=== PATIENT | female | born 1935 | race Hispanic/Latino ===

== ENCOUNTER 2017-10-24 09:53 | Inpatient (IN) | payer MEDICARE ==
[2017-10-24 10:10] VITALS: RESP 20
--- NOTE | 2017-10-24 10:56 | C.PDOC ---
History Of Present Illness 82 year old female, whose PMHx includes HTN, presents to the ED for evaluation of left-sided facial and body numbness which began at around 0300 today. Patient states she woke up to use the bathroom and she felt dizziness which she describes as a room-spinning sensation. Patient also reports feeling nauseous when she ate food this morning. Patient notes she is normally able to walk without support but was unable to this morning due to the dizziness. She currently denies dizziness as well as headache, vision change, chest pain, shortness of breath, vomiting, or pain at this time. Time Seen by Provider: 10/24/17 10:35 Chief Complaint (Nursing): Headache History Per: Patient History/Exam Limitations: no limitations Onset/Duration Of Symptoms: Hrs Current Symptoms Are (Timing): Still Present Quality: denies: "Pain" Preceeding Symptoms: denies: Visual Disturbances Associated Symptoms: Nausea. denies: Photophobia, Blurred Vision, Vomiting Additional History Per: Patient Past Medical History Reviewed: Historical Data, Nursing Documentation, Vital Signs Vital Signs: Last Vital Signs Temp 98.3 F 10/24/17 13:15 Pulse 76 10/24/17 13:15 Resp 20 10/24/17 13:15 BP 166/66 H 10/24/17 13:15 Pulse Ox 95 10/24/17 13:46 - Medical History PMH: HTN Surgical History: No Surg Hx Family History: States: Unknown Family Hx - Social History Hx Tobacco Use: No Hx Alcohol Use: No Hx Substance Use: No - Immunization History Hx Tetanus Toxoid Vaccination: No Hx Influenza Vaccination: No Hx Pneumococcal Vaccination: No Review Of Systems Eyes: Negative for: Vision Change Cardiovascular: Negative for: Chest Pain Respiratory: Negative for: Shortness of Breath Gastrointestinal: Positive for: Nausea. Negative for: Vomiting Neurological: Positive for: Numbness (left-sided), Dizziness. Negative for: Headache Physical Exam - Physical Exam Appears: Non-toxic, No Acute Distress Skin: Warm, Dry, No Diaphoretic, No Pale, No Rash Head: Atraumatic, Normacephalic Eye(s): bilateral: Normal Inspection, PERRL, EOMI, Other (wear glasses) Nose: Normal, No Flaring Oral Mucosa: Moist Neck: Supple Chest: Symmetrical, No Deformity, No Tenderness Cardiovascular: Rhythm Regular, No Murmur Respiratory: Normal Breath Sounds, No Rales, No Rhonchi, No Wheezing Gastrointestinal/Abdominal: Soft, No Tenderness, No Distention, No Guarding, No Rebound Extremity: Normal ROM, Capillary Refill (less than 2 seconds) Pulses: Left Dorsalis Pedis: Normal, Right Dorsalis Pedis: Normal Neurological/Psych: Oriented x3, Normal Speech Gait: Steady ED Course And Treatment - Laboratory Results Result Diagrams: 10/24/17 11:09 10/24/17 11:09 Lab Interpretation: No Acute Changes ECG: Interpreted By Me, Viewed By Me ECG Rhythm: Sinus Rhythm ECG Interpretation: No Acute Changes Rate From EC O2 Sat by Pulse Oximetry: 95 (on RA) Pulse Ox Interpretation: Normal - Other Rad CXR X-Ray: Interpreted by Me, Viewed By Me, Read By Radiologist Interpretation: PROCEDURE: CHEST RADIOGRAPH, 1 VIEW. HISTORY: dizzniess. COMPARISON: None available. FINDINGS: LUNGS: Bibasilar atelectasis/ scarring. PLEURA: Questionable small left pleural effusion. No appreciable pneumothorax. CARDIOVASCULAR: Atherosclerotic aortic calcifications. Cardiomediastinal silhouette enlarged. OSSEOUS STRUCTURES: Degenerative changes. VISUALIZED UPPER ABDOMEN: Normal. OTHER FINDINGS: None. IMPRESSION : Questionable small left pleural effusion. - CT Scan/US CT Head Other Rad Studies (CT/US): Interpreted By Me, Read By Radiologist, Radiology Report Reviewed CT/US Interpretation: PROCEDURE: CT HEAD WITHOUT CONTRAST. HISTORY: dizziness , left side numbness. COMPARISON: None available. TECHNIQUE: Axial computed tomography images were obtained through the head/brain without intravenous contrast. Radiation dose: Total exam DLP = 776.62 mGy-cm. This CT exam was performed using one or more of the following dose reduction techniques: Automated exposure control, adjustment of the mA and/or kV according to patient size, and/or use of iterative reconstruction technique. FINDINGS: HEMORRHAGE: No intracranial hemorrhage. BRAIN: No There is an extra-axial calcified rounded mass along the high right frontal convexity. It measures 1.9 cm in diameter. There is minimal remodeling and sclerosis of the inner table of the calvarium adjacent to this mass. This is consistent with a calcified meningioma. No other intracranial mass is identified. There is a questionable basilar tip aneurysm. This measures approximately 5 x 7 mm. However, this may represent an ectatic dominant/dilated left vertebral artery with an accompanying atrophic right vertebral artery. This should be further evaluated with magnetic resonance angiography. VENTRICLES: Unremarkable. No hydrocephalus. CALVARIUM: No fracture. PARANASAL SINUSES: Unremarkable as visualized. No significant inflammatory changes. MASTOID AIR CELLS: Unremarkable as visualized. No inflammatory changes. OTHER FINDINGS: None. IMPRESSION: Probable high right frontal convexity calcified meningioma. Questionable basilar tip aneurysm versus tortuous, ectatic dominant left vertebral artery. Recommend further evaluation with magnetic resonance angiography. NIHSS Stroke Scale - Date/Time Evaluation Performed Date Performed: 10/24/17 Time Performed: 10:45 When Was NIHSS Performed: Baseline - How Severe is the Stoke Level of Consciousness: 0=Alert LOC to Questions: 0=Both comments correct LOC to commands: 0=Obeys both correctly Best Gaze: 0=Normal Visual: 0=No visual loss Facial: 0=Normal Motor Arm - Left: 0=No drift Motor Arm - Right: 0=No drift Motor Leg - Left: 0=No drift Motor Leg - Right: 0=No drift Limb Ataxia: 0=Absent Sensory: 0=Normal Best Language: 0=No aphasia Dysarthia: 0=Normal articulation Extinction & Inattention (Neglect): 0=Normal, no object Score: 0 Severity Of Stroke: 0= No Stroke Medical Decision Making Medical Decision Making: Impression: 82 year old female with left-sided numbness Plan: * bloodwork * urinalysis * CT Head * EKG Progress: Bloodwork, urinalysis. CT Head, CXR, EKG ordered and reviewed. Dr Gooden was informed and made aware of case and Stroke Alert. CT head showed Probable high right frontal convexity calcified meningioma. Questionable basilar tip aneurysm versus tortuous, ectatic dominant left vertebral artery. Recommend further evaluation with magnetic resonance angiography. Patient remained alert and oriented without neuro deficits. 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 - Scribe Statement The provider has reviewed the documentation as recorded by the Scribe (Isaura Dickerson) All medical record entries made by the Scribe were at my direction and personally dictated by me. I have reviewed the chart and agree that the record accurately reflects my personal performance of the history, physical exam, medical decision making, and the department course for this patient. I have also personally directed, reviewed, and agree with the discharge instructions and disposition. Decision To Admit - Pt Status Changed To: Hospital Disposition Of: Observation - . Bed Request Type: Telemetry Admitting Physician: Juan Daniel Huynh Patient Diagnosis: TIA (transient ischemic attack)
[2017-10-24 11:16] LABS: BASO % 0.6 % (0.0-2.0); EOS # 0.1 K/uL (0.0-0.7); EOS % 0.8 % (0.0-4.0); HEMOGLOBIN 12.9 g/dL (11.0-16.0); LYMPH % 15.4 % (20.0-40.0); MEAN CELL VOLUME 91.2 fL (81.0-99.0); MEAN CORPUSCULAR HEMOGLOBIN 30.9 pg (27.0-31.0); MEAN CORPUSCULAR HGB CONC 33.9 g/dL (33.0-37.0); MEAN PLATELET VOLUME 8.3 fL (7.2-11.7); MONO # 0.6 K/uL (0.0-0.8); MONO % 9.9 % (0.0-10.0); NEUT # 4.8 K/uL (1.8-7.0); NEUT % 73.3 % (50.0-75.0); RBC 4.17 Mil/uL (3.80-5.20); WHITE BLOOD COUNT 6.5 K/uL (4.8-10.8)
[2017-10-24 11:27] LABS: ALB/GLOB RATIO 1.3 (1.0-2.1); ALBUMIN 4.3 g/dL (3.5-5.0); ALT/SGPT 10 U/L (9-52); AST/SGOT 28 U/L (14-36); BLOOD UREA NITROGEN 18 mg/dL (7-17); CALCIUM 9.2 mg/dl (8.6-10.4); GFR AFRICAN-AMERICAN > 60; GFR NON-AFRICAN AMERICAN > 60; HDL CHOLESTEROL 47 mg/dL (30-70)
[2017-10-24 11:30] LABS: URINE BILIRUBIN NEGATIVE (NEGATIVE); URINE BLOOD NEGATIVE (NEGATIVE); URINE CLARITY Clear (Clear); URINE COLOR Straw (YELLOW); URINE GLUCOSE (UA) NORMAL (Normal); URINE LEUKOCYTE ESTERASE NEG Leu/uL (Negative); URINE PROTEIN NEGATIVE (NEGATIVE); URINE UROBILINOGEN NORMAL mg/dL (0.2-1.0)
[2017-10-24 11:36] LABS: INR 1.1; PROTHROMBIN TIME 11.6 SECONDS (9.7-12.2)
[2017-10-24 11:38] LABS: LDL CHOLESTEROL 103 mg/dL (0-129)
--- NOTE | 2017-10-24 12:30 | CT ---
PROCEDURE: CT HEAD WITHOUT CONTRAST. HISTORY: dizziness, left side numbness COMPARISON: None available. TECHNIQUE: Axial computed tomography images were obtained through the head/brain without intravenous contrast. Radiation dose: Total exam DLP = 776.62 mGy-cm. This CT exam was performed using one or more of the following dose reduction techniques: Automated exposure control, adjustment of the mA and/or kV according to patient size, and/or use of iterative reconstruction technique. FINDINGS: HEMORRHAGE: No intracranial hemorrhage. BRAIN: No There is an extra-axial calcified rounded mass along the high right frontal convexity. It measures 1.9 cm in diameter. There is minimal remodeling and sclerosis of the inner table of the calvarium adjacent to this mass. This is consistent with a calcified meningioma. No other intracranial mass is identified. There is a questionable basilar tip aneurysm. This measures approximately 5 x 7 mm. However, this may represent an ectatic dominant/dilated left vertebral artery with an accompanying atrophic right vertebral artery. This should be further evaluated with magnetic resonance angiography. VENTRICLES: Unremarkable. No hydrocephalus. CALVARIUM: No fracture. PARANASAL SINUSES: Unremarkable as visualized. No significant inflammatory changes. MASTOID AIR CELLS: Unremarkable as visualized. No inflammatory changes. OTHER FINDINGS: None. IMPRESSION: Probable high right frontal convexity calcified meningioma. Questionable basilar tip aneurysm versus tortuous, ectatic dominant left vertebral artery. Recommend further evaluation with magnetic resonance angiography.
--- NOTE | 2017-10-24 12:39 | RAD ---
PROCEDURE: CHEST RADIOGRAPH, 1 VIEW HISTORY: dizzniess COMPARISON: None available. FINDINGS: LUNGS: Bibasilar atelectasis/ scarring. PLEURA: Questionable small left pleural effusion. No appreciable pneumothorax. CARDIOVASCULAR: Atherosclerotic aortic calcifications. Cardiomediastinal silhouette enlarged. OSSEOUS STRUCTURES: Degenerative changes. VISUALIZED UPPER ABDOMEN: Normal. OTHER FINDINGS: None. IMPRESSION: Questionable small left pleural effusion.
--- NOTE | 2017-10-24 14:18 | CP.PCM.HP ---
<Gamaliel Martinez - Last Filed: 10/24/17 16:08> History of Present Illness - History of Present Illness History of Present Illness: CC: left side numbness 82 year old [place] female with past medical history of hypertension and heart murmur presents to the ED complaining of left sided numbness. Patient states her symptoms started suddenly this morning around 3AM. When she woke up in the later that morning still having numbness. Patient became worried and her friend recommended the patient to go to the hospital. Patient also reports to feeling nauseous and dizziness as if the room is spinning. Patient denies having slurred of speech or weakness. When she arrived the ED her symptoms improved slightly. No similar episodes in the past. Patient was last seen by Dr. Brasher ( cardiology) 3 years ago to evaluate her heart murmur, was told no surgical intervention was necessary. Patient denies physical trauma, fever, chills, shortness of breath, chest pain, abdominal pain, extremity swelling, vomiting, or urinary symptoms. Daughter [phone] PMD: Dr. Snyder PMHx: HTN, heart murmur PSHx: Hernia repair 2007 Allergy: none Social Hx: Denies tobacco, alcohol or other drug use. Lives with her . Family Hx: Both parents at young age during WW2 Home meds: Amlodipine 5mg Present on Admission - Present on Admission Any Indicators Present on Admission: No Review of Systems - Review of Systems All systems: reviewed and no additional remarkable complaints except - Constitutional Constitutional: As Per HPI. absent: Chills, Fever - EENT Eyes: As Per HPI. absent: Blurred Vision, Diplopia, Dry Eye Ears: As Per HPI, Dizziness Nose/Mouth/Throat: As Per HPI. absent: Epistaxis, Nasal Discharge - Breasts Breasts: As Per HPI - Cardiovascular Cardiovascular: As Per HPI. absent: Chest Pain, Dyspnea, Leg Edema - Respiratory Respiratory: As Per HPI. absent: Cough, Dyspnea - Gastrointestinal Gastrointestinal: As Per HPI, Nausea. absent: Abdominal Pain, Diarrhea, Vomiting - Genitourinary Genitourinary: As Per HPI. absent: Change in Urinary Stream, Flank Pain - Reproductive: Female Reproductive:Female: As Per HPI - Menstruation Menstruation: As Per HPI - Musculoskeletal Musculoskeletal: As Per HPI, Numbness, Tingling - Integumentary Integumentary: As Per HPI. absent: Acne, Alopecia - Neurological Neurological: As Per HPI, Dizziness, Tingling. absent: Frequent Falls - Psychiatric Psychiatric: As Per HPI. absent: Confusion, Depression - Endocrine Endocrine: As Per HPI - Hematologic/Lymphatic Hematologic: As Per HPI Past Patient History - Past Social History Smoking Status: Never Smoked - CARDIAC Hx Hypertension: Yes - PSYCHIATRIC Hx Substance Use: No - SURGICAL HISTORY Hx Surgeries: No - ANESTHESIA Hx Anesthesia: No Hx Anesthesia Reactions: No Meds Allergies/Adverse Reactions: Allergies Allergy/AdvReac Type Severity Reaction Status Date / Time No Known Allergies Allergy Verified 10/24/17 10:11 Physical Exam - Constitutional Appears: Non-toxic, No Acute Distress - Head Exam Head Exam: ATRAUMATIC, NORMOCEPHALIC - Eye Exam Eye Exam: EOMI, Normal appearance - ENT Exam ENT Exam: Mucous Membranes Moist - Neck Exam Neck exam: Positive for: Normal Inspection - Respiratory Exam Respiratory Exam: Clear to Auscultation Bilateral, NORMAL BREATHING PATTERN. absent: Wheezes, Respiratory Distress - Cardiovascular Exam Cardiovascular Exam: +S1, +S2, Systolic Murmur. absent: Clicks - GI/Abdominal Exam GI & Abdominal Exam: Normal Bowel Sounds, Soft. absent: Bruit, Mass, Tenderness - Extremities Exam Extremities exam: Positive for: normal inspection. Negative for: joint swelling , pedal edema, tenderness - Neurological Exam Neurological exam: Alert, CN II-XII Intact, Oriented x3 Additional comments: sensory R>L, strength 5/5 in all extremities No tremors, no ataxia, no pronator drift appreciated - Psychiatric Exam Psychiatric exam: Normal Affect, Normal Mood - Skin Skin Exam: Dry, Intact, Normal Color, Warm Results - Vital Signs Recent Vital Signs: Last Vital Signs Temp 98.3 F 10/24/17 13:15 Pulse 76 10/24/17 13:15 Resp 20 10/24/17 13:15 BP 166/66 H 10/24/17 13:15 Pulse Ox 95 10/24/17 13:46 - Labs Result Diagrams: 10/24/17 11:09 10/24/17 11:09 Labs: Laboratory Results - last 24 hr 10/24/17 10/24/17 10/24/17 11:09 11:09 11:09 WBC 6.5 RBC 4.17 Hgb 12.9 Hct 38.1 MCV 91.2 MCH 30.9 MCHC 33.9 RDW 14.0 Plt Count 258 MPV 8.3 Neut % (Auto) 73.3 Lymph % (Auto) 15.4 L [place] % (Auto) 9.9 Eos % (Auto) 0.8 Baso % (Auto) 0.6 Neut # (Auto) 4.8 Lymph # (Auto) 1.0 [place] # (Auto) 0.6 Eos # (Auto) 0.1 Baso # (Auto) 0.0 PT 11.6 INR 1.1 APTT 32 Sodium 144 Potassium 4.5 Chloride 102 Carbon Dioxide 29 Anion Gap 17 BUN 18 H Creatinine 0.7 Est GFR ( Amer) > 60 Est GFR (Non-Af Amer) > 60 Random Glucose 111 H Calcium 9.2 Total Bilirubin 0.6 AST 28 ALT 10 Alkaline Phosphatase 65 Troponin I < 0.0120 Total Protein 7.6 Albumin 4.3 Globulin 3.3 Albumin/Globulin Ratio 1.3 Triglycerides 51 Cholesterol 163 LDL Cholesterol Direct 103 HDL Cholesterol 47 Urine Color Urine Clarity Urine pH Ur Specific [place] Urine Protein Urine Glucose (UA) Urine Ketones Urine Blood Urine Nitrate Urine Bilirubin Urine Urobilinogen Ur Leukocyte Esterase Urine WBC (Auto) Urine RBC (Auto) 10/24/17 11:15 WBC RBC Hgb Hct MCV MCH MCHC RDW Plt Count MPV Neut % (Auto) Lymph % (Auto) [place] % (Auto) Eos % (Auto) Baso % (Auto) Neut # (Auto) Lymph # (Auto) [place] # (Auto) Eos # (Auto) Baso # (Auto) PT INR APTT Sodium Potassium Chloride Carbon Dioxide Anion Gap BUN Creatinine Est GFR ( Amer) Est GFR (Non-Af Amer) Random Glucose Calcium Total Bilirubin AST ALT Alkaline Phosphatase Troponin I Total Protein Albumin Globulin Albumin/Globulin Ratio Triglycerides Cholesterol LDL Cholesterol Direct HDL Cholesterol Urine Color Straw Urine Clarity Clear Urine pH 7.0 Ur Specific [place] 1.008 Urine Protein Negative Urine Glucose (UA) Normal Urine Ketones Negative Urine Blood Negative Urine Nitrate Negative Urine Bilirubin Negative Urine Urobilinogen Normal Ur Leukocyte Esterase Neg Urine WBC (Auto) 1 Urine RBC (Auto) 1 Assessment & Plan - Assessment and Plan (Free Text) Assessment: TIA -Improving left sided numbness -CT head shows probable right frontal calcified meningioma, questionable basilar tip aneurysm (see report) -Follow up head, neck MRA, brain MRI w/ contrast -Neurology consulted -Troponin negative, repeats pending -Follow up B12, folate, TSH -ASA 325mg, crestor 20mg -Neuro check Systolic murmur -Patient was last evaluated 3 years ago, no intervention performed -Follow up echocardiogram -Cardiology consulted HTN -Hold off home hypertensive medication to optimize cerebral perfusion Prophylactic measures -Protonix -SCD -PT and OT <Juan Daniel Huynh - Last Filed: 10/24/17 18:18> Results - Vital Signs Recent Vital Signs: Last Vital Signs Temp 97.2 F L 10/24/17 16:25 Pulse 90 10/24/17 16:25 Resp 20 10/24/17 16:25 BP 187/52 H 10/24/17 16:25 Pulse Ox 98 10/24/17 17:03 - Labs Result Diagrams: 10/24/17 11:09 10/24/17 11:09 Labs: Laboratory Results - last 24 hr 10/24/17 10/24/17 10/24/17 11:09 11:09 11:09 WBC 6.5 RBC 4.17 Hgb 12.9 Hct 38.1 MCV 91.2 MCH 30.9 MCHC 33.9 RDW 14.0 Plt Count 258 MPV 8.3 Neut % (Auto) 73.3 Lymph % (Auto) 15.4 L [place] % (Auto) 9.9 Eos % (Auto) 0.8 Baso % (Auto) 0.6 Neut # (Auto) 4.8 Lymph # (Auto) 1.0 [place] # (Auto) 0.6 Eos # (Auto) 0.1 Baso # (Auto) 0.0 PT 11.6 INR 1.1 APTT 32 Sodium 144 Potassium 4.5 Chloride 102 Carbon Dioxide 29 Anion Gap 17 BUN 18 H Creatinine 0.7 Est GFR ( Amer) > 60 Est GFR (Non-Af Amer) > 60 Random Glucose 111 H Calcium 9.2 Total Bilirubin 0.6 AST 28 ALT 10 Alkaline Phosphatase 65 Troponin I < 0.0120 Total Protein 7.6 Albumin 4.3 Globulin 3.3 Albumin/Globulin Ratio 1.3 Triglycerides 51 Cholesterol 163 LDL Cholesterol Direct 103 HDL Cholesterol 47 Urine Color Urine Clarity Urine pH Ur Specific [place] Urine Protein Urine Glucose (UA) Urine Ketones Urine Blood Urine Nitrate Urine Bilirubin Urine Urobilinogen Ur Leukocyte Esterase Urine WBC (Auto) Urine RBC (Auto) 10/24/17 11:15 WBC RBC Hgb Hct MCV MCH MCHC RDW Plt Count MPV Neut % (Auto) Lymph % (Auto) [place] % (Auto) Eos % (Auto) Baso % (Auto) Neut # (Auto) Lymph # (Auto) [place] # (Auto) Eos # (Auto) Baso # (Auto) PT INR APTT Sodium Potassium Chloride Carbon Dioxide Anion Gap BUN Creatinine Est GFR ( Amer) Est GFR (Non-Af Amer) Random Glucose Calcium Total Bilirubin AST ALT Alkaline Phosphatase Troponin I Total Protein Albumin Globulin Albumin/Globulin Ratio Triglycerides Cholesterol LDL Cholesterol Direct HDL Cholesterol Urine Color Straw Urine Clarity Clear Urine pH 7.0 Ur Specific [place] 1.008 Urine Protein Negative Urine Glucose (UA) Normal Urine Ketones Negative Urine Blood Negative Urine Nitrate Negative Urine Bilirubin Negative Urine Urobilinogen Normal Ur Leukocyte Esterase Neg Urine WBC (Auto) 1 Urine RBC (Auto) 1 Attending/Attestation - Attestation I have personally seen and examined this patient.: Yes I have fully participated in the care of the patient.: Yes I have reviewed all pertinent clinical information: Yes Notes (Text): Patient was seen and examined by me in the ER. Complaining of left side numbness. started this morning 3am. It is getting better. Has some left hand and left foot numbness . No change in her speech,no dysphagia. History taken from the patient. d/w the resident. I agree with the documentation of the resident's assessment and the plan MRA head and neck and MRI brain with and without contrast. Dr varghese's consult appreciated follow MRI and MRA
--- NOTE | 2017-10-24 17:27 | CP.PCM.CON ---
History of Present Illness - History of Present Illness History of Present Illness: Mrs. Hoang is an 82-year-old woman with a past medical history of hypertension, who states that she woke up this morning at around 3 AM with vertigo, difficulty with ambulation and left side numbness. She presented to the ED this afternoon. CT scan of the head showed dilated vertebrobasilar system, but no acute findings. She continues to have left side numbness and feels like the room is spinning. She does not feel steady when she walks. She denied nausea, vomiting, headache, chest pain, or other neurological deficits. Review of Systems - Review of Systems All systems: reviewed and no additional remarkable complaints except Past Patient History - Past Social History Smoking Status: Never Smoked - CARDIAC Hx Hypertension: Yes - PSYCHIATRIC Hx Substance Use: No - SURGICAL HISTORY Hx Surgeries: No - ANESTHESIA Hx Anesthesia: No Hx Anesthesia Reactions: No Meds Allergies/Adverse Reactions: Allergies Allergy/AdvReac Type Severity Reaction Status Date / Time No Known Allergies Allergy Verified 10/24/17 10:11 - Medications Medications: Current Medications Aspirin (Aspirin) 325 mg PO DAILY [facility] Last Admin: 10/24/17 14:36 Dose: 325 mg Pantoprazole Sodium (Protonix Ec Tab) 40 mg PO DAILY [facility] Pneumococcal Polyvalent Vaccine (Pneumovax 23 Vaccine) 0.5 ml IM .ONCE ONE Stop: 10/26/17 10:01 Rosuvastatin Calcium (Crestor) 20 mg PO [facility] Physical Exam - Neurological Exam Neurological exam: Abnormal Gait, Alert, CN II-XII Intact, Oriented x3 Additional comments: Reflexes brisk on the left side. Sensation is diminished on the left face, arm and leg. Coordination is impaired on the left side. No nystagmus. NIHSS=2 Results - Vital Signs Recent Vital Signs: Last Vital Signs Temp 97.2 F L 10/24/17 16:25 Pulse 90 10/24/17 16:25 Resp 20 10/24/17 16:25 BP 187/52 H 10/24/17 16:25 Pulse Ox 98 10/24/17 17:03 - Labs Result Diagrams: 10/24/17 11:09 10/24/17 11:09 Labs: Laboratory Results - last 24 hr 10/24/17 10/24/17 10/24/17 11:09 11:09 11:09 WBC 6.5 RBC 4.17 Hgb 12.9 Hct 38.1 MCV 91.2 MCH 30.9 MCHC 33.9 RDW 14.0 Plt Count 258 MPV 8.3 Neut % (Auto) 73.3 Lymph % (Auto) 15.4 L [place] % (Auto) 9.9 Eos % (Auto) 0.8 Baso % (Auto) 0.6 Neut # (Auto) 4.8 Lymph # (Auto) 1.0 [place] # (Auto) 0.6 Eos # (Auto) 0.1 Baso # (Auto) 0.0 PT 11.6 INR 1.1 APTT 32 Sodium 144 Potassium 4.5 Chloride 102 Carbon Dioxide 29 Anion Gap 17 BUN 18 H Creatinine 0.7 Est GFR ( Amer) > 60 Est GFR (Non-Af Amer) > 60 Random Glucose 111 H Calcium 9.2 Total Bilirubin 0.6 AST 28 ALT 10 Alkaline Phosphatase 65 Troponin I < 0.0120 Total Protein 7.6 Albumin 4.3 Globulin 3.3 Albumin/Globulin Ratio 1.3 Triglycerides 51 Cholesterol 163 LDL Cholesterol Direct 103 HDL Cholesterol 47 Urine Color Urine Clarity Urine pH Ur Specific [place] Urine Protein Urine Glucose (UA) Urine Ketones Urine Blood Urine Nitrate Urine Bilirubin Urine Urobilinogen Ur Leukocyte Esterase Urine WBC (Auto) Urine RBC (Auto) 10/24/17 11:15 WBC RBC Hgb Hct MCV MCH MCHC RDW Plt Count MPV Neut % (Auto) Lymph % (Auto) [place] % (Auto) Eos % (Auto) Baso % (Auto) Neut # (Auto) Lymph # (Auto) [place] # (Auto) Eos # (Auto) Baso # (Auto) PT INR APTT Sodium Potassium Chloride Carbon Dioxide Anion Gap BUN Creatinine Est GFR ( Amer) Est GFR (Non-Af Amer) Random Glucose Calcium Total Bilirubin AST ALT Alkaline Phosphatase Troponin I Total Protein Albumin Globulin Albumin/Globulin Ratio Triglycerides Cholesterol LDL Cholesterol Direct HDL Cholesterol Urine Color Straw Urine Clarity Clear Urine pH 7.0 Ur Specific [place] 1.008 Urine Protein Negative Urine Glucose (UA) Normal Urine Ketones Negative Urine Blood Negative Urine Nitrate Negative Urine Bilirubin Negative Urine Urobilinogen Normal Ur Leukocyte Esterase Neg Urine WBC (Auto) 1 Urine RBC (Auto) 1 Assessment & Plan (1) Ischemic stroke Assessment and Plan: The patient continues to have left side numbness and coordination difficulty. Her symptoms may represent vertebrobasilar insufficiency, or a possible left cerebellar infarct. CT of the head showed a possible basilar tip aneurysm and a calcified meningioma in the right frontal region. I recommend the followin. Telemetry 2. MRI brain with and without contrast (possible meningioma), MRA head/neck without contrast (STAT) 3. If no aneurysm, start Aspirin 81 mg daily 4. Permissive HTN (only treat BP that is higher than 220/110 mm Hg) 5. Valium 2 mg BID for vertigo 6. PT/OT eval and treatment 7. Echocardiogram with bubble study 8. Fluids with NS at 100 mL/hr 9. Case management Consult Thank you for this consultation. Status: Acute Priority: High
[2017-10-24] MEDS ORDERED: Gadodiamide 287 mg/ml 20 ml IV ONE (18:16)
--- NOTE | 2017-10-24 18:40 | MRI ---
PROCEDURE: MRI BRAIN WITH AND WITHOUT CONTRAST HISTORY: stroke meningioma COMPARISON: CT of the head 10/24/2017 TECHNIQUE: Multiplanar, multisequence MR images of the brain were obtained with and without intravenous contrast enhancement. FINDINGS: HEMORRHAGE: None DWI: No evidence of an acute or early subacute infarction. BRAIN PARENCHYMA: There is a 17 mm calcified meningioma in the right parietal region. There is no significant mass effect or edema in the adjacent brain. There is minimal enhancement along the periphery of the lesion. No atrophy or chronic microvascular ischemic changes. ENHANCEMENT: No abnormal intracranial enhancement. VENTRICLES: Unremarkable. No hydrocephalus. CRANIUM: Unremarkable. ORBITS: Grossly unremarkable. PARANASAL SINUSES/MASTOIDS: Clear VASCULAR SYSTEM: Skull base flow voids intact. OTHER FINDINGS: None . IMPRESSION: No acute intracranial findings. 17 mm meningioma right parietal region
--- NOTE | 2017-10-24 18:44 | MRI ---
PROCEDURE: MR Angiography of the neck without contrast HISTORY: stroke COMPARISON: None available. TECHNIQUE: 3D [id number] angiography of the neck was performed. Rotating maximum intensity projection images of the cervical carotid and vertebral arteries were generated. The origins of the common carotid arteries were not visualized, which is a limitation inherent to the non-contrast time of flight technique. FINDINGS: RIGHT CAROTID ARTERIES: Common Carotid Artery: Normal. Carotid Bifurcation: Normal. Internal Carotid Artery:Normal. External Carotid Artery (proximal branches): Normal. LEFT CAROTID ARTERIES: Common Carotid Artery: Normal. Carotid Bifurcation: Normal. Internal Carotid Artery:Normal. External Carotid Artery (proximal branches): Normal. VERTEBRAL ARTERIES: Right Vertebral Artery: Dominant Left Vertebral Artery: Normal. OTHER FINDINGS: None. IMPRESSION: No significant stenosis
--- NOTE | 2017-10-24 18:46 | MRI ---
PROCEDURE: Magnetic Resonance Angiography Brain HISTORY: stroke COMPARISON: None available. TECHNIQUE: 3D time of flight MR angiography of the intracranial arteries was performed. Rotating maximum intensity projection images were generated. FINDINGS: INTERNAL CAROTID ARTERIES: Unremarkable. The skull base, petrous, cavernous and supraclinoid segments are bilaterally widely patient. ANTERIOR CEREBRAL ARTERIES: Unremarkable. A1 and A2 segments are widely patent. Smaller distal branches unremarkable, as visualized. MIDDLE CEREBRAL ARTERIES: Unremarkable. M1 and M2 segments are widely patent. Perisylvian branches grossly symmetric. POSTERIOR CIRCULATION: Basilar Artery: Unremarkable. Distal Vertebral Arteries: Unremarkable. Posterior Cerebral Arteries: Unremarkable. Posterior Inferior Cerebellar Arteries: Unremarkable. ANEURYSM/ VASCULAR MALFORMATIONS: None. OTHER FINDINGS: None. IMPRESSION: Unremarkable MR angiography of the brain.
[2017-10-24] MEDS: Sodium Chloride 0.9% 1,000 ML IV SCH (18:52)
[2017-10-24 18:59] LABS: FOLATE > 20.0 ng/mL
[2017-10-25] MEDS: Sodium Chloride 0.9% 1,000 ML IV SCH ×2 (05:30→14:47)
[2017-10-25 06:37] LABS: BASO % 0.7 % (0.0-2.0); EOS # 0.1 K/uL (0.0-0.7); EOS % 2.4 % (0.0-4.0); HEMOGLOBIN 12.9 g/dL (11.0-16.0); LYMPH # 1.3 K/uL (1.0-4.3); LYMPH % 25.3 % (20.0-40.0); MEAN CELL VOLUME 91.9 fL (81.0-99.0); MEAN CORPUSCULAR HEMOGLOBIN 30.7 pg (27.0-31.0); MEAN CORPUSCULAR HGB CONC 33.5 g/dL (33.0-37.0); MEAN PLATELET VOLUME 8.3 fL (7.2-11.7); MONO # 0.6 K/uL (0.0-0.8); MONO % 12.1 % (0.0-10.0); NEUT % 59.5 % (50.0-75.0); RBC 4.2 Mil/uL (3.80-5.20); RED CELL DISTRIBUTION WIDTH 14.3 % (11.5-14.5)
[2017-10-25 06:50] LABS: ALB/GLOB RATIO 1.2 (1.0-2.1); ALBUMIN 3.7 g/dL (3.5-5.0); ALT/SGPT 20 U/L (9-52); AST/SGOT 23 U/L (14-36); BLOOD UREA NITROGEN 15 mg/dL (7-17); CALCIUM 8.9 mg/dl (8.6-10.4); GFR AFRICAN-AMERICAN > 60; GFR NON-AFRICAN AMERICAN > 60
--- NOTE | 2017-10-25 07:34 | CP.PCM.PN ---
Subjective - Date & Time of Evaluation Date of Evaluation: 10/25/17 Time of Evaluation: 07:00 - Subjective Subjective: Medicine Progress Note: Patient was seen and examined at bedside in the AM. Patient states her numbness has improved slightly on the left side but she still has decreased sensation. she denies pain, nausea, vomiting, fever, chills, change in weight, diarrhea or constipation. Objective - Vital Signs/Intake and Output Vital Signs (last 24 hours): Temp Pulse Resp BP Pulse Ox 97.8 F 63 20 131/66 97 10/24/17 23:10 10/25/17 05:36 10/24/17 23:10 10/25/17 05:36 10/25/17 04:00 Intake and Output: 10/25/17 10/25/17 06:59 18:59 Intake Total 900 Balance 900 - Medications Medications: Current Medications Diazepam (Valium) 2 mg PO Q12H [facility] Last Admin: 10/25/17 06:05 Dose: 2 mg Sodium Chloride (Sodium Chloride 0.9%) 1,000 mls @ 100 mls/hr IV .Q10H [facility] Last Admin: 10/25/17 05:30 Dose: Not Given Pantoprazole Sodium (Protonix Ec Tab) 40 mg PO DAILY [facility] Pneumococcal Polyvalent Vaccine (Pneumovax 23 Vaccine) 0.5 ml IM .ONCE ONE Stop: 10/26/17 10:01 Rosuvastatin Calcium (Crestor) 20 mg PO HS [facility] Last Admin: 10/24/17 21:21 Dose: 20 mg - Labs Labs: 10/25/17 06:29 10/25/17 06:29 PT 11.6 SECONDS (9.7-12.2) 10/24/17 11:09 INR 1.1 10/24/17 11:09 APTT 32 SECONDS (21-34) 10/24/17 11:09 - Constitutional Appears: No Acute Distress - Head Exam Head Exam: ATRAUMATIC, NORMAL INSPECTION - Eye Exam Eye Exam: EOMI, Normal appearance - ENT Exam ENT Exam: Mucous Membranes Moist - Respiratory Exam Respiratory Exam: Clear to Ausculation Bilateral, NORMAL BREATHING PATTERN - Cardiovascular Exam Cardiovascular Exam: REGULAR RHYTHM, RRR, +S1, +S2, Murmur (systolic murmur ) - GI/Abdominal Exam GI & Abdominal Exam: Soft, Normal Bowel Sounds. absent: Tenderness - Extremities Exam Extremities Exam: Full ROM, Normal Inspection. absent: Pedal Edema, Tenderness - Neurological Exam Neurological Exam: Alert, Awake, CN II-XII Intact, Oriented x3 Neuro motor strength exam: Left Upper Extremity: 5, Right Upper Extremity: 5, Left Lower Extremity: 5, Right Lower Extremity: 5 Additional comments: Decreased sensation to light touch on the left side - Psychiatric Exam Psychiatric exam: Normal Affect, Normal Mood - Skin Skin Exam: Normal Color Assessment and Plan - Assessment and Plan (Free Text) Assessment: TIA -Improving left sided numbness -CT head shows probable right frontal calcified meningioma, questionable basilar tip aneurysm (see report) -Follow up head, neck MRA, brain MRI w/ contrast -Neurology consulted -Troponin negative, repeats pending -Follow up B12, folate, TSH -ASA 325mg, crestor 20mg -Neuro check Systolic murmur -Patient was last evaluated 3 years ago, no intervention performed -Follow up echocardiogram -Cardiology consulted HTN -Hold off home hypertensive medication to optimize cerebral perfusion Prophylactic measures -Protonix -SCD -PT and OT
--- NOTE | 2017-10-25 07:56 | CP.PCM.PN ---
Subjective - Date & Time of Evaluation Date of Evaluation: 10/25/17 Time of Evaluation: 07:50 - Subjective Subjective: Ms. Hoang was seen and examined at the bedside. She is alert, oriented. She denies any headache, dizziness, lightheadedness, nausea, or vomiting. She further states of feeling much better today in comparison from yesterday. She is able to follow simple commands with her reflexes brisk on the left side. Sensation is diminished on the left face, arm and leg. Coordination is impaired on the left side, remains with no nystagmus. She is able to ambulate from bed to bathroom with minimal assistance which she claims is a lot of improvement from yesterday. MRI of the brain showed 17 mm meningioma in the right parietal region. There was no untoward events overnight. Objective - Vital Signs/Intake and Output Vital Signs (last 24 hours): Temp Pulse Resp BP Pulse Ox 97.6 F 87 20 127/74 96 10/25/17 07:00 10/25/17 07:00 10/25/17 07:00 10/25/17 07:00 10/25/17 07:00 Intake and Output: 10/25/17 10/25/17 06:59 18:59 Intake Total 900 Balance 900 - Medications Medications: Current Medications Aspirin (Aspirin Chewable) 81 mg PO DAILY [facility] Diazepam (Valium) 2 mg PO Q12H [facility] Last Admin: 10/25/17 06:05 Dose: 2 mg Sodium Chloride (Sodium Chloride 0.9%) 1,000 mls @ 100 mls/hr IV .Q10H [facility] Last Admin: 10/25/17 05:30 Dose: Not Given Pantoprazole Sodium (Protonix Ec Tab) 40 mg PO DAILY [facility] Pneumococcal Polyvalent Vaccine (Pneumovax 23 Vaccine) 0.5 ml IM .ONCE ONE Stop: 10/26/17 10:01 Rosuvastatin Calcium (Crestor) 20 mg PO HS [facility] Last Admin: 10/24/17 21:21 Dose: 20 mg - Labs Labs: 10/25/17 06:29 10/25/17 06:29 PT 11.6 SECONDS (9.7-12.2) 10/24/17 11:09 INR 1.1 10/24/17 11:09 APTT 32 SECONDS (21-34) 10/24/17 11:09 - Constitutional Appears: No Acute Distress - Head Exam Head Exam: NORMAL INSPECTION - Neurological Exam Neurological Exam: Alert, Awake, Oriented x3 Neuro motor strength exam: Left Upper Extremity: 4, Right Upper Extremity: 5, Left Lower Extremity: 4, Right Lower Extremity: 5 Additional comments: She is alert, oriented, follows commands with reflexes brisk on the left side. Sensation is diminished on the left face, arm and leg. Coordination is impaired on the left side and no nystagmus. Assessment and Plan (1) Ischemic stroke Assessment & Plan: Case discussed with Dr. Marin, continue all current medical, physical, occupational therapies. Recommend aspirin 81 mg po daily. Pending echocardiogram. Status: Acute
[2017-10-25] MEDS ORDERED: Pantoprazole 40 mg EC Tab PO SCH (10:00)
--- NOTE | 2017-10-25 16:38 | CP.PCM.DIS ---
Provider - Provider Date of Admission: 10/25/17 15:42 Attending physician: Juan Daniel Huynh MD Time Spent in preparation of Discharge (in minutes): 40 Hospital Course - Lab Results Lab Results: Most Recent Lab Values WBC 5.0 K/uL (4.8-10.8) 10/25/17 06:29 RBC 4.20 Mil/uL (3.80-5.20) 10/25/17 06:29 Hgb 12.9 g/dL (11.0-16.0) 10/25/17 06:29 Hct 38.6 % (34.0-47.0) 10/25/17 06: MCV 91.9 fL (81.0-99.0) 10/25/17 06: MCH 30.7 pg (27.0-31.0) 10/25/17 06: MCHC 33.5 g/dL (33.0-37.0) 10/25/17 06: RDW 14.3 % (11.5-14.5) 10/25/17 06:29 Plt Count 266 K/uL (130-400) 10/25/17 06:29 MPV 8.3 fL (7.2-11.7) 10/25/17 06:29 Neut % (Auto) 59.5 % (50.0-75.0) 10/25/17 06: Lymph % (Auto) 25.3 % (20.0-40.0) 10/25/17 06: [place] % (Auto) 12.1 % (0.0-10.0) H 10/25/17 06:29 Eos % (Auto) 2.4 % (0.0-4.0) 10/25/17 06:29 Baso % (Auto) 0.7 % (0.0-2.0) 10/25/17 06: Neut # (Auto) 3.0 K/uL (1.8-7.0) 10/25/17 06:29 Lymph # (Auto) 1.3 K/uL (1.0-4.3) 10/25/17 06:29 [place] # (Auto) 0.6 K/uL (0.0-0.8) 10/25/17 06:29 Eos # (Auto) 0.1 K/uL (0.0-0.7) 10/25/17 06:29 Baso # (Auto) 0.0 K/uL (0.0-0.2) 10/25/17 06:29 PT 11.6 SECONDS (9.7-12.2) 10/24/17 11:09 INR 1.1 10/24/17 11:09 APTT 32 SECONDS (21-34) 10/24/17 11:09 Sodium 145 mmol/L (132-148) 10/25/17 06:29 Potassium 4.2 mmol/L (3.6-5.2) 10/25/17 06:29 Chloride 107 mmol/L (98-107) 10/25/17 06:29 Carbon Dioxide 29 mmol/L (22-30) 10/25/17 06:29 Anion Gap 14 (10-20) 10/25/17 06:29 BUN 15 mg/dL (7-17) 10/25/17 06:29 Creatinine 0.8 mg/dL (0.7-1.2) 10/25/17 06:29 Est GFR ( Amer) > 60 10/25/17 06:29 Est GFR (Non-Af Amer) > 60 10/25/17 06:29 Random Glucose 83 mg/dL (65-105) 10/25/17 06:29 Calcium 8.9 mg/dl (8.6-10.4) 10/25/17 06:29 Magnesium 2.2 mg/dL (1.6-2.3) 10/24/17 17:17 Total Bilirubin 0.8 mg/dL (0.2-1.3) 10/25/17 06:29 AST 23 U/L (14-36) 10/25/17 06:29 ALT 20 U/L (9-52) 10/25/17 06:29 Alkaline Phosphatase 59 U/L (38-126) 10/25/17 06:29 Total Creatine Kinase 28 U/L (30-135) L 10/24/17 17:19 CK-MB (Mass) 0.60 ng/mL (0.0-3.38) 10/24/17 17:19 Troponin I < 0.0120 ng/mL (0.00-0.120) 10/24/17 17:19 Total Protein 6.7 g/dL (6.3-8.3) 10/25/17 06:29 Albumin 3.7 g/dL (3.5-5.0) 10/25/17 06:29 Globulin 3.1 gm/dL (2.2-3.9) 10/25/17 06:29 Albumin/Globulin Ratio 1.2 (1.0-2.1) 10/25/17 06:29 Triglycerides 51 mg/dL (0-149) 10/24/17 11:09 Cholesterol 163 mg/dL (0-199) 10/24/17 11:09 LDL Cholesterol Direct 103 mg/dL (0-129) 10/24/17 11:09 HDL Cholesterol 47 mg/dL (30-70) 10/24/17 11:09 Vitamin B12 596 pg/mL (239-931) 10/24/17 17:17 Folate > 20.0 ng/mL 10/24/17 17:17 TSH 3rd Generation 0.40 mIU/L (0.46-4.68) L 10/24/17 17:17 Urine Color Straw (YELLOW) 10/24/17 11:15 Urine Clarity Clear (Clear) 10/24/17 11:15 Urine pH 7.0 (5.0-8.0) 10/24/17 11:15 Ur Specific [place] 1.008 (1.003-1.030) 10/24/17 11:15 Urine Protein Negative mg/dL (NEGATIVE) 10/24/17 11:15 Urine Glucose (UA) Normal mg/dL (Normal) 10/24/17 11:15 Urine Ketones Negative mg/dL (NEGATIVE) 10/24/17 11:15 Urine Blood Negative (NEGATIVE) 10/24/17 11:15 Urine Nitrate Negative (NEGATIVE) 10/24/17 11:15 Urine Bilirubin Negative (NEGATIVE) 10/24/17 11:15 Urine Urobilinogen Normal mg/dL (0.2-1.0) 10/24/17 11:15 Ur Leukocyte Esterase Neg Rubi/uL (Negative) 10/24/17 11:15 Urine WBC (Auto) 1 /hpf (0-5) 10/24/17 11:15 Urine RBC (Auto) 1 /hpf (0-3) 10/24/17 11:15 - Hospital Course Hospital Course: 82 year old Polish female with past medical history of hypertension and heart murmur presents to the ED complaining of left sided numbness. Patient states her symptoms started suddenly this morning around 3AM. When she woke up in the later that morning still having numbness. Patient became worried and her friend recommended the patient to go to the hospital. Patient also reports to feeling nauseous and dizziness as if the room is spinning. Patient denies having slurred of speech or weakness. When she arrived the ED her symptoms improved slightly. No similar episodes in the past. Patient was last seen by Dr. Brasher ( cardiology) 3 years ago to evaluate her heart murmur, was told no surgical intervention was necessary. Patient denies physical trauma, fever, chills, shortness of breath, chest pain, abdominal pain, extremity swelling, vomiting, or urinary symptoms. Daughter [phone] PMD: Dr. Snyder PMHx: HTN, heart murmur PSHx: Hernia repair 2007 Allergy: none Social Hx: Denies tobacco, alcohol or other drug use. Lives with her . Family Hx: Both parents at young age during WW2 Home meds: Amlodipine 5mg Hospital Course: During this hospital stay patient was admitted for observation for TIA. Neurologist Dr. Marin was consulted. Aspirin 325mg was given in the emergency room. Troponin was negative x2 and EKG Normal sinus rhythm. CT of the head shows probable right frontal calcified meningioma, questionable basilar tip aneurysm. During admission patient was found to have a history of meningioma diagnosed 10 years ago. Left sided numbness improved during admission. Cardiology Dr. Connolly was consulted for aortic murmur and ECHO was ordered. Patient was started on crestor 20mg and aspirin 81mg. Patient was seen by physical therapy who recommended patient to have at home physical therapy. Imaging: Head CT: Probable high right frontal convexity calcified meningioma. Questionable basilar tip aneurysm versus tortuous, ectatic dominant left vertebral artery. Recommend further evaluation with magnetic resonance angiography. Brain MRI: No acute intracranial findings. 17 mm meningioma right parietal region Head MRA:Unremarkable MR angiography of the brain. Neck MRA: No significant stenosis Patient is stable for discharge. Patient to continue all home medications. Patient to start these medications: 1.) Aspirin 81mg one tablet daily 2.) Crestor 20mg one tablet at night Please follow up with ECHO results. Please call hospital for results: [phone] Please follow up with PMD Dr. Snyder in 1 week. Please return to the emergency room if symptoms return or worsen. This is summary of the patient's hospitalization, please review full EMR for further details. Discharge Exam - Head Exam Head Exam: ATRAUMATIC, NORMAL INSPECTION - Eye Exam Eye Exam: EOMI, Normal appearance - ENT Exam ENT Exam: Mucous Membranes Moist - Respiratory Exam Respiratory Exam: Clear to PA & Lateral, NORMAL BREATHING PATTERN - Cardiovascular Exam Cardiovascular Exam: REGULAR RHYTHM, +S1, +S2, Systolic Murmur - GI/Abdominal Exam GI & Abdominal Exam: Normal Bowel Sounds, Soft. absent: Tenderness - Extremities Exam Extremities exam: normal inspection - Neurological Exam Neurological exam: Alert, Oriented x3 Additional comments: Decreased sensation to light touch on the left side - Psychiatric Exam Psychiatric exam: Normal Affect, Normal Mood - Skin Skin Exam: Normal Color Discharge Plan - Discharge Medications Prescriptions: Aspirin [Aspirin Chewable] 81 mg PO DAILY #30 chew Rosuvastatin Calcium [Crestor] 20 mg PO HS #30 tab - Follow Up Plan Condition: STABLE Disposition: HOME/ ROUTINE Instructions: Heart Healthy Diet, Stroke (DC), Aspirin, Rosuvastatin Additional Instructions: Patient to continue all home medications. Patient to start these medications: 1.) Aspirin 81mg one tablet daily 2.) Crestor 20mg one tablet at night Please follow up with ECHO results. Please call hospital for results: [phone] Please follow up with PMD Dr. Snyder in 1 week. Please return to the emergency room if symptoms return or worsen. Referrals: Alexander Marin MD [Staff Provider] - Yary Snyder MD [Staff Provider] -
[2017-10-25 17:26] VITALS: BP 151/76; PULSE 84; TEMP 97.8; O2SAT 96
--- NOTE | 2017-10-25 19:24 | CARD ---
APPROVED REPORT EKG Measurement Heart [id number] <Conclusion> Normal sinus rhythm Possible Left atrial enlargement Borderline ECG
[2017-10-26] MEDS ORDERED: Pneumococcal 23-Valent Vaccine IM ONE (10:00)
== END 2017-10-25 18:31 | disposition home or self-care (01) | DRG 66 ==
LOC: C.ER 09:53 → C.9E 12:45 → C.6T 13:03 → OBSVTOIN 10-25 15:42
PROVIDERS: ADMIT Internal Medicine; ATTEND Internal Medicine
DX: I63.9 Cerebral infarction, unspecified (principal); I10 Essential (primary) hypertension; R01.1 Cardiac murmur, unspecified; Z86.011 Personal history of benign neoplasm of the brain; D32.9 Benign neoplasm of meninges, unspecified

== ENCOUNTER 2018-06-23 12:58 | Outpatient (CLI) | payer MEDICARE, OTHER | END 2018-06-23 12:59 | disposition home or self-care (01) | LOC: C.MRIC 12:58 | DX: G62.9 Polyneuropathy, unspecified (principal) ==